=== PATIENT | female | born 1980 | race Two or more races ===

== ENCOUNTER 2023-02-01 11:17 | Inpatient (IN) | payer OTHER ==
[~2023-02-01] VITALS: Ht 152.4 cm; Wt 81.2 kg
[~2023-02-01 11:17] MED LIST: ASA81 MG; ASPIR 8181 MG PO; PNEU16DI2
[2023-02-01] MEDS ORDERED: OBTREX DHA COM1 EACH PO (12:23)
[2023-02-01] MEDS ORDERED: FOLIC ACID20 MG PO (12:23)
[2023-02-01] MEDS ORDERED: SYNTHROID75 MCG PO (12:23)
[2023-02-01] MEDS ORDERED: LOVENOX40 MG/0.4 SUBCUTANEO (12:23)
[2023-02-01 12:41] LABS: HEMATOCRIT 43.8 % (36.0-45.00); HEMOGLOBIN 14.7 g/dL (12.0-15.00); MEAN CELL VOLUME 90.4 fL (80.00-100.00); MEAN CORPUSCULAR HEMOGLOBIN 30.2 pg (27.00-32.0); MEAN CORPUSCULAR HGB CONC 33.4 g/dl (32.0-36.0); PLATELET COUNT 257 K/uL (150-450); RED BLOOD COUNT 4.85 M/uL (4.00-6.00); RED CELL DISTRIBUTION WIDTH 14.3 % (11.5-14.5)
[2023-02-01 13:11] LABS: ALBUMIN 3.2 gm/dL (3.4-5.0); BILIRUBIN TOTAL 0.39 mg/dL (0.3-1.2); CALCIUM 8.8 mg/dL (8.5-10.1); CREATININE SERUM 0.56 mg/dL (0.55-1.02); GFR 119.9; GLOBULINA 3.5 G/DL (2.4-3.5); INR 0.94; POTASSIUM 3.93 mEq/L (3.5-5.1); PROTHROMBIN TIME 9.9 SECONDS (9.0-11.5); TOTAL PROTEIN 6.7 gm/dL (6.4-8.2)
== END 2023-02-06 13:51 | disposition home or self-care (01) | DRG 786 ==
LOC: O/R 02-03 08:55 → OB/GYN 02-03 11:15
PROVIDERS: ADMIT Obstetrics & Gynecology Maternal & Fetal Medicine; ATTEND Obstetrics & Gynecology Maternal & Fetal Medicine
PROC: 4A1HXCZ Monitoring of Products of Conception, Cardiac Rate, External Approach (ICD-10-PCS; 2023-02-03)
PROC: 10D00Z1 Extraction of Products of Conception, Low, Open Approach (ICD-10-PCS; principal; 2023-02-03 12:15)
DX: O36.4XX0 Maternal care for intrauterine death, not applicable or unspecified (principal); O60.12X0 Preterm labor second trimester with preterm delivery second trimester, not applicable or unspecified; O32.1XX0 Maternal care for breech presentation, not applicable or unspecified; Z3A.23 23 weeks gestation of pregnancy; Z37.1 Single stillbirth; Z20.822 Contact with and (suspected) exposure to COVID-19

== ENCOUNTER 2024-05-16 11:43 | Emergency (ER) | payer OTHER ==
[~2024-05-16] VITALS: Ht 152.4 cm; Wt 74.4 kg
[~2024-05-16 11:43] MED LIST changes: +FOLIC ACID20 MG PO; +LOVENOX40 MG/0.4 SUBCUTANEO; +OBTREX DHA COM1 EACH PO; +SYNTHROID75 MCG PO
[2024-05-16 11:50] VITALS: BP 131/80; O2SAT 99
[2024-05-16 12:58] LABS: PH,URINE 7.5 (5.0-8.0); URINE APPEARANCE Clear; URINE BILIRRUBIN Negative (NEGATIVE); URINE BLOOD Negative; URINE COLOR Yellow; URINE GLUCOSE Negative (NEGATIVE); URINE KETONE Negative (NEGATIVE); URINE LEUKOCYTE Negative; URINE NITRATE Negative; URINE PROTEIN Negative (NEGATIVE); URINE UROBILINOGEN 0.2 E.U./dl
[2024-05-16 13:01] LABS: URINE BACTERIA 939.9 uL (0.0-1933); URINE EPITHELIAL CELLS 38.3 uL (0.0-38.8); URINE WBC 10.1 uL (0.0-23.2)
[2024-05-16 13:09] LABS: HEMATOCRIT 42.2 % (36.0-45.00); HEMOGLOBIN 14.5 g/dL (12.0-15.00); MEAN CELL VOLUME 88.2 fL (80.00-100.00); MEAN CORPUSCULAR HEMOGLOBIN 30.4 pg (27.00-32.0); MEAN CORPUSCULAR HGB CONC 34.5 g/dl (32.0-36.0); PLATELET COUNT 251 K/uL (150-450); RED BLOOD COUNT 4.78 M/uL (4.00-6.00)
[2024-05-16 13:18] LABS: URINE CAST 0.14 uL (0.0-1.40); URINE RBC 0.7 uL (0.0-20.8)
[2024-05-16 13:37] LABS: ALBUMIN 3.2 gm/dL (3.4-5.0); BILIRUBIN TOTAL 0.36 mg/dL (0.3-1.2); CALCIUM 9.7 mg/dL (8.5-10.1); CREATININE SERUM 0.61 mg/dL (0.55-1.02); GFR 108.09; GLOBULINA 3.8 G/DL (2.4-3.5); POTASSIUM 4.05 mEq/L (3.5-5.1)
== END 2024-05-16 15:53 ==
LOC: ER 11:43
PROVIDERS: General Practice
DX: Z34.90 Encounter for supervision of normal pregnancy, unspecified, unspecified trimester (principal); S80.212A Abrasion, left knee, initial encounter; W19.XXXA Unspecified fall, initial encounter; Y93.89 Activity, other specified; Y92.098 Other place in other non-institutional residence as the place of occurrence of the external cause; Y99.8 Other external cause status; Z3A.18 18 weeks gestation of pregnancy; E03.8 Other specified hypothyroidism

== ENCOUNTER 2024-07-07 07:09 | Outpatient (CLI) | payer OTHER | END 2024-07-07 07:23 | disposition home or self-care (01) | LOC: NST 07:09 | PROVIDERS: ATTEND Obstetrics & Gynecology Maternal & Fetal Medicine | DX: Z3A.25 25 weeks gestation of pregnancy (principal) ==

== ENCOUNTER 2024-07-21 07:30 | Outpatient (CLI) | payer OTHER | END 2024-07-21 09:03 | disposition home or self-care (01) | LOC: NST 07:30 | PROVIDERS: ATTEND Obstetrics & Gynecology Maternal & Fetal Medicine | DX: Z3A.27 27 weeks gestation of pregnancy (principal) ==

== ENCOUNTER 2024-07-28 06:45 | Outpatient (CLI) | payer OTHER | END 2024-07-28 12:31 | disposition home or self-care (01) | LOC: NST 06:45 | PROVIDERS: ATTEND Obstetrics & Gynecology Maternal & Fetal Medicine | DX: Z34.83 Encounter for supervision of other normal pregnancy, third trimester (principal) ==

== ENCOUNTER 2024-08-04 07:19 | Outpatient (CLI) | payer OTHER | END 2024-08-04 08:11 | disposition home or self-care (01) | LOC: NST 07:19 | PROVIDERS: ATTEND Obstetrics & Gynecology Maternal & Fetal Medicine | DX: Z34.83 Encounter for supervision of other normal pregnancy, third trimester (principal) ==

== ENCOUNTER 2024-08-11 07:08 | Outpatient (CLI) | payer OTHER | END 2024-08-11 07:47 | disposition home or self-care (01) | LOC: NST 07:08 | PROVIDERS: ATTEND Obstetrics & Gynecology Maternal & Fetal Medicine | DX: Z34.83 Encounter for supervision of other normal pregnancy, third trimester (principal) ==

== ENCOUNTER 2024-08-18 07:40 | Outpatient (CLI) | payer OTHER | END 2024-08-18 08:20 | disposition home or self-care (01) | LOC: NST 07:40 | PROVIDERS: ATTEND Obstetrics & Gynecology Maternal & Fetal Medicine | DX: Z34.83 Encounter for supervision of other normal pregnancy, third trimester (principal) ==

== ENCOUNTER 2024-08-25 07:17 | Outpatient (CLI) | payer OTHER | END 2024-08-25 08:08 | disposition home or self-care (01) | LOC: NST 07:17 | PROVIDERS: ATTEND Obstetrics & Gynecology Maternal & Fetal Medicine | DX: Z34.83 Encounter for supervision of other normal pregnancy, third trimester (principal) ==

== ENCOUNTER 2024-08-31 07:52 | Outpatient (CLI) | payer OTHER | END 2024-08-31 09:23 | disposition home or self-care (01) | LOC: NST 07:52 | PROVIDERS: ATTEND Obstetrics & Gynecology Maternal & Fetal Medicine | DX: Z34.83 Encounter for supervision of other normal pregnancy, third trimester (principal) ==

== ENCOUNTER 2024-09-08 07:09 | Outpatient (CLI) | payer OTHER | END 2024-09-08 07:59 | disposition home or self-care (01) | LOC: NST 07:09 | PROVIDERS: ATTEND Obstetrics & Gynecology Maternal & Fetal Medicine | DX: Z34.83 Encounter for supervision of other normal pregnancy, third trimester (principal) ==

== ENCOUNTER 2024-09-15 07:16 | Outpatient (CLI) | payer OTHER | END 2024-09-15 07:49 | disposition home or self-care (01) | LOC: NST 07:16 | PROVIDERS: ATTEND Obstetrics & Gynecology Maternal & Fetal Medicine | DX: Z34.83 Encounter for supervision of other normal pregnancy, third trimester (principal) ==

== ENCOUNTER 2024-09-22 08:01 | Outpatient (CLI) | payer OTHER ==
[2024-09-22] MEDS ORDERED: LABETALOL HCL200 MG PO (13:57)
== END 2024-09-22 09:03 | disposition home or self-care (01) ==
LOC: NST 08:01
PROVIDERS: ATTEND Obstetrics & Gynecology
DX: Z34.83 Encounter for supervision of other normal pregnancy, third trimester (principal)

== ENCOUNTER 2024-09-22 11:40 | Inpatient (IN) | payer OTHER ==
[~2024-09-22] VITALS: Ht 152.4 cm; Wt 2.3 kg
[2024-09-22 13:30] LABS: BASO % 0.5 % (0.1-1.2); EOS # 0.31 (0.04-0.54); EOS % 4.8 % (0.7-7.0); LYMPH # 1.76 (1.18-3.74); LYMPH % 27.1 % (19.3-53.1); MONO # 0.34 (0.24-0.82); MONO % 5.2 % (4.7-12.5); NEUT # 4.02 (1.56-6.13); NEUT % 61.8 % (34.0-71.1); PLATELET COUNT 197 K/uL (163-369); RED BLOOD COUNT 4.52 M/uL (3.93-5.22); RED CELL DISTRIBUTION WIDTH 14.3 % (11.6-14.4)
[2024-09-22] MEDS ORDERED: LABETALOL HCL200 MG PO (13:57)
[2024-09-22 14:06] LABS: INR 0.94; PARTIAL THROMBOPLASTIN TIME 25.9 SECONDS (22.0-34.0); PROTHROMBIN TIME 10.3 SECONDS (9.0-11.5)
[2024-09-22 14:18] LABS: BILIRUBIN TOTAL 0.43 mg/dL (0.3-1.2); CALCIUM 9.1 mg/dL (8.5-10.1); CREATININE SERUM 0.61 mg/dL (0.55-1.02); GFR 107.56; GLOBULINA 3.5 G/DL (2.4-3.5); POTASSIUM 4.22 mEq/L (3.5-5.1); TOTAL PROTEIN 6.5 gm/dL (6.4-8.2)
[2024-09-27] MEDS ORDERED: SYNTHROID88 MCG PO (07:40)
[2024-09-27 07:43] VITALS: BP 109/68
[2024-09-27] MEDS ORDERED: CITRIC ACID/SODIUM CITRATE 30 ML BLIST.PACK PO ONE ×2 (09:24→10:30)
[2024-09-27] MEDS ORDERED: CEFOXITIN SODIUM 2,000 MG VIAL IV ONE (09:24)
[2024-09-27] MEDS ORDERED: ERYTHROMYCIN BASE OPHT 1GM EACH TUBE OP ONE (10:26)
[2024-09-27] MEDS ORDERED: OXYTOCIN 10 UNITS/ML VIAL ONE (10:26)
[2024-09-27] MEDS ORDERED: OXYTOCIN 1,000 ML IV ONE (16:00)
[2024-09-27] MEDS ORDERED: RINGERS SOLUTION,LACTATED 1,000 ML IV SCH (16:00)
[2024-09-27] MEDS ORDERED: MORPHINE SULFATE 4 MG/ML CARTRIDGE IV PRN (16:00)
[2024-09-27 16:56] VITALS: BP 139/61
[2024-09-27] MEDS ORDERED: SIMETHICONE 125 MG CAPSULE PO SCH (17:00)
[2024-09-27] MEDS ORDERED: GABAPENTIN 300 MG CAPSULE PO SCH (17:00)
[2024-09-27] MEDS ORDERED: ACETAMINOPHEN 500 MG GEL..CAP PO SCH (18:00)
[2024-09-27] MEDS ORDERED: KETOROLAC TROMETHAMINE 30 MG VIAL IV SCH (18:00)
[2024-09-27] MEDS ORDERED: ONDANSETRON HCL 2 MG/ML VIAL IV SCH (18:00)
[2024-09-27] MEDS ORDERED: LABETALOL HCL 200 MG TABLET PO SCH (19:45)
[2024-09-28 01:52] VITALS: BP 104/63
[2024-09-28 07:21] LABS: BASO % 0.3 % (0.1-1.2); EOS % 2.2 % (0.7-7.0); HEMOGLOBIN 12.8 g/dL (11.2-15.7); LYMPH # 1.27 (1.18-3.74); LYMPH % 14.3 % (19.3-53.1); MEAN CORPUSCULAR HEMOGLOBIN 30.8 pg (25.6-32.2); MONO # 0.49 (0.24-0.82); MONO % 5.5 % (4.7-12.5); NEUT # 6.87 (1.56-6.13); NEUT % 77.4 % (34.0-71.1); PLATELET COUNT 158 K/uL (163-369); RED BLOOD COUNT 4.15 M/uL (3.93-5.22); RED CELL DISTRIBUTION WIDTH 14.2 % (11.6-14.4)
[2024-09-28] MEDS ORDERED: OxyCODONE HCL 5 MG TABLET (ROXICODONE) PO PRN (08:00)
[2024-09-28] MEDS ORDERED: KETOROLAC TROMETHAMINE 10 MG TABLET PO SCH (08:00)
[2024-09-28] MEDS ORDERED: ENOXAPARIN SODIUM 40 MG/0.4 ML SYRINGE SUBCUTANEO SCH (09:00)
[2024-09-28] MEDS ORDERED: DOCUSATE SODIUM 100MG CAP PO SCH (09:00)
[2024-09-28 12:58] VITALS: BP 125/82
[2024-09-28 17:07] VITALS: BP 107/71
[2024-09-29 02:59] VITALS: BP 103/63
[2024-09-29 09:42] VITALS: BP 110/70
== END 2024-09-29 14:35 | disposition home or self-care (01) | DRG 788 ==
LOC: OB/GYN 09-27 07:19 → O/R 09-27 07:19 → OB/GYN 09-27 09:31
PROVIDERS: Obstetrics & Gynecology; ADMIT Obstetrics & Gynecology Maternal & Fetal Medicine; ATTEND Obstetrics & Gynecology Maternal & Fetal Medicine
PROC: 4A1HXCZ Monitoring of Products of Conception, Cardiac Rate, External Approach (ICD-10-PCS; 2024-09-27)
PROC: 10D00Z1 Extraction of Products of Conception, Low, Open Approach (ICD-10-PCS; principal; 2024-09-27 10:45)
DX: O34.211 Maternal care for low transverse scar from previous cesarean delivery (principal); Z3A.39 39 weeks gestation of pregnancy; Z37.0 Single live birth

== ENCOUNTER 2024-09-25 07:38 | Outpatient (CLI) | payer OTHER ==
[~2024-09-25 07:38] MED LIST changes: +LABETALOL HCL200 MG PO
== END 2024-09-25 07:59 | disposition home or self-care (01) ==
LOC: NST 07:38
PROVIDERS: ATTEND Obstetrics & Gynecology Maternal & Fetal Medicine
DX: Z3A.36 36 weeks gestation of pregnancy (principal)

== ENCOUNTER 2024-12-07 15:30 | Outpatient (CLI) | payer OTHER ==
[~2024-12-07 15:30] MED LIST changes: +SYNTHROID88 MCG PO
== END 2024-12-07 15:39 | disposition home or self-care (01) ==
LOC: TOM 15:30
PROVIDERS: ATTEND Orthopaedic Surgery
DX: M16.32 Unilateral osteoarthritis resulting from hip dysplasia, left hip (principal); M25.552 Pain in left hip